=== PATIENT | female | born 1965 | race American Indian/Alaskan Native ===

== ENCOUNTER 2017-06-26 14:52 | Emergency (ER) | payer MEDICARE, MEDICAID ==
[2017-06-26 14:53] VITALS: BMI 35.4
[2017-06-26] MEDS ORDERED: Sodium Chloride 0.9% 500 ML IV ONE (15:51)
--- NOTE | 2017-06-26 15:56 | C.PDOC ---
History Of Present Illness 52 yr old female with history of urinary frequency and has a indwelling [place] Cather, presents to the ER stating she was treated for a UTI 2 weeks ago with outpatient antibiotics, however still does not feel better and still has dysuria and suprapubic pain. Patient denies fever, chills, nausea, vomiting, diarrhea, hematuria, back pain, weakness or numbness. Time Seen by Provider: 06/26/17 15:29 Chief Complaint (Nursing): Abdominal Pain History Per: Patient History/Exam Limitations: no limitations Onset/Duration Of Symptoms: Days Current Symptoms Are (Timing): Still Present Location Of Pain/Discomfort: Suprapubic Past Medical History Reviewed: Historical Data, Nursing Documentation, Vital Signs Vital Signs: Last Vital Signs Temp 97.8 F 06/26/17 18:47 Pulse 73 06/26/17 18:47 Resp 18 06/26/17 18:47 BP 152/86 H 06/26/17 18:47 Pulse Ox 97 06/26/17 18:53 - Medical History PMH: Anemia, Arthritis, Back Problems, Cardia Arrhythmia (tachycardia due to reaction of haldol with prednisone), Depression, Hiatal Hernia, Multiple Sclerosis Surgical History: Endoscopy - [facility] Procedures D & C NEC (10/27/13) ENDOSC POLYPECTOMY OF LG INTEST (10/03/00) PACKED CELL TRANSFUSION (08/09/13) PSYCHIAT DRUG THERAP NEC (11/03/02) Family History: States: No Known Family Hx - Social History Hx Tobacco Use: No Hx Alcohol Use: No Hx Substance Use: No - Immunization History Hx Tetanus Toxoid Vaccination: No Hx Influenza Vaccination: No Hx Pneumococcal Vaccination: No Review Of Systems Except As Marked, All Systems Reviewed And Found Negative. Constitutional: Negative for: Fever, Chills Gastrointestinal: Positive for: Abdominal Pain (suprapubic). Negative for: Nausea, Vomiting, Diarrhea Genitourinary: Positive for: Dysuria. Negative for: Hematuria Musculoskeletal: Negative for: Back Pain Neurological: Negative for: Weakness, Numbness Physical Exam - Physical Exam Appears: Non-toxic, No Acute Distress Skin: Warm, Dry, No Rash Head: Atraumatic, Normacephalic Eye(s): bilateral: Normal Inspection, PERRL, EOMI Oral Mucosa: Moist Neck: Normal ROM, Supple Chest: Symmetrical, No Tenderness Cardiovascular: Rhythm Regular, No Friction Rub, No Murmur Respiratory: Normal Breath Sounds, No Rales, No Rhonchi, No Stridor, No Wheezing Gastrointestinal/Abdominal: Bowel Sounds (active), Soft, Tenderness (suprapubic) , No Guarding, No Rebound Back: Normal Inspection, No CVA Tenderness Pelvic: Normal External Exam, Other (cartagena in place) Extremity: Normal ROM, No Tenderness, No Swelling Neurological/Psych: Oriented x3, Normal Speech Gait: Unable To Assess (PAtient is a paraplegic) ED Course And Treatment - Laboratory Results Result Diagrams: 06/26/17 16:26 06/26/17 16:26 O2 Sat by Pulse Oximetry: 97 (RA) Pulse Ox Interpretation: Normal Medical Decision Making Medical Decision Making: PLAN: * Labs * Urinalysis * Morphine IVP * Toradol IVP * Zofran IVP * Sodium Chloride IV [place] bag was changed, but patient does not want catheter changed. Patient states she will have it changed by her visiting nurse in 2-3 days. UA sent which is (+) for UTI. Patient reports that she is taking Monobact. PAtient given Macrobid and vantin as that antibiotic may be ineffective. On re-exam, the patient reports improvement of symptoms. Lungs are CTA, heart is RRR, abdomen is soft, non-tender and tolerating PO well. Disposition - Disposition Referrals: Andres Patel MD [Staff Provider] - Disposition Time: 18:52 Condition: GOOD Additional Instructions: Follow up with the medical doctor within 1-2 days. Return if worsened. Prescriptions: Cefpodoxime [Vantin] 200 mg PO BID #14 tab Nitrofurantoin Macrocrystals [Macrobid] 100 mg PO BID #14 cap Instructions: Urinary Tract Infections in Adults Forms: [employer] (Turkish) - Clinical Impression Clinical Impression: UTI (urinary tract infection) - PA / BUSINESS SERVICES OFFICER / Resident Statement MD/DO has reviewed & agrees with the documentation as recorded. - Scribe Statement The provider has reviewed the documentation as recorded by the Scribe Nyaely Esteban All medical record entries made by the Scribe were at my direction and personally dictated by me. I have reviewed the chart and agree that the record accurately reflects my personal performance of the history, physical exam, medical decision making, and the department course for this patient. I have also personally directed, reviewed, and agree with the discharge instructions and disposition.
[2017-06-26] MEDS ORDERED: Morphine 4 MG/ML VIAL ONE (16:02)
[2017-06-26] MEDS ORDERED: Sodium Chloride 0.9% 1,000 ML ONE (16:02)
[2017-06-26 16:36] LABS: BASO # 0.1 K/uL (0.0-0.2); BASO % 0.6 % (0.0-2.0); EOS # 0.1 K/uL (0.0-0.7); EOS % 1.5 % (0.0-4.0); HEMOGLOBIN 11.6 g/dL (11.0-16.0); LYMPH # 2.7 K/uL (1.0-4.3); LYMPH % 33.2 % (20.0-40.0); MEAN CELL VOLUME 86.8 fL (81.0-99.0); MEAN CORPUSCULAR HEMOGLOBIN 29.4 pg (27.0-31.0); MEAN CORPUSCULAR HGB CONC 33.9 g/dL (33.0-37.0); MEAN PLATELET VOLUME 7.3 fL (7.2-11.7); MONO # 0.8 K/uL (0.0-0.8); MONO % 9.5 % (0.0-10.0); NEUT # 4.5 K/uL (1.8-7.0); NEUT % 55.2 % (50.0-75.0); NRBC % 0.1 % (0.0-2.0); RBC 3.96 Mil/uL (3.80-5.20); WHITE BLOOD COUNT 8.1 K/uL (4.8-10.8)
[2017-06-26 16:42] LABS: ALB/GLOB RATIO 0.9 (1.0-2.1); ALBUMIN 3.9 g/dL (3.5-5.0); ALT/SGPT 31 U/L (9-52); AST/SGOT 36 U/L (14-36); BLOOD UREA NITROGEN 9 mg/dL (7-17); CALCIUM 8.9 mg/dl (8.6-10.4); GFR AFRICAN-AMERICAN > 60; GFR NON-AFRICAN AMERICAN > 60; LIPASE 197 U/L (23-300)
[2017-06-26 17:14] LABS: SQUAMOUS EPITHIAL < 1 /hpf (0-5); URINE BACTERIA FEW (<OCC); URINE BILIRUBIN NEGATIVE (NEGATIVE); URINE BLOOD 1+ (NEGATIVE); URINE CLARITY Hazy (Clear); URINE COLOR Straw (YELLOW); URINE GLUCOSE (UA) NORMAL (Normal); URINE LEUKOCYTE ESTERASE 3+ Leu/uL (Negative); URINE NITRATE POSITIVE (NEGATIVE); URINE PROTEIN NEGATIVE (NEGATIVE); URINE UROBILINOGEN NORMAL mg/dL (0.2-1.0)
[2017-06-26] MEDS ORDERED: cefTRIAXone IV 1 gm in Dextros 50 ML IV ONE (18:02)
[2017-06-26] MEDS ORDERED: cefTRIAXone IV 1 gm in Dextros 50 ML IVPB ONE (18:35)
[2017-06-26 22:28] VITALS: BP 132/79; PULSE 73; RESP 22; TEMP 97.5; O2SAT 100
== END 2017-06-26 22:15 | disposition home or self-care (01) ==
LOC: C.ER 14:52
DX: N39.0 Urinary tract infection, site not specified (principal)
CPT/HCPCS: 80053; 81001; 83690; 85025; 87086; 87181; 96365; 96375; 99285; J0696; J1885; J2270; J2405; J7040

== ENCOUNTER 2017-07-31 12:02 | Emergency (ER) | payer MEDICARE, MEDICAID ==
[2017-07-31 12:02] VITALS: BMI 35.4
[2017-07-31 12:18] VITALS: RESP 16; TEMP 97.9
[2017-07-31] MEDS ORDERED: Oxycodone/Acetaminophen 5/325 mg Tab PO STA (12:55)
[2017-07-31] MEDS ORDERED: Oxycodone/Acetaminophen 5/325 mg Tab ONE ×2 (13:01→13:30)
--- NOTE | 2017-07-31 13:05 | C.PDOC ---
History Of Present Illness 52yo female, with history of multiple sclerosis, hemiplegia, brought to ER by EMS accompanied by her caregiver for evaluation of "possible UTI" for past 3 days. Patient has a chronic [place] ( for 5 yrs) catheter and reports noticing foul odor to her urine and cloudy urine in urine bag. She also reports vaginal irritation " soreness" and some vaginal discharge. Patient admits, similar sx in "month ago was here with same". Otherwise, patient denies any associated fever, chills, recent illness, CP, SOB, dyspnea, palpitation, abd. pain, nausea , vomiting, back pain, gross hematuria. She has no other medical complaints. At present time, pt appears comfortable, not in any apparent distress. Time Seen by Provider: 07/31/17 12:14 Chief Complaint (Nursing): Female Genitourinary History Per: Patient History/Exam Limitations: no limitations Onset/Duration Of Symptoms: Days (3) Current Symptoms Are (Timing): Still Present Associated Symptoms: Urinary Symptoms. denies: Fever, Chills, Nausea, Vomiting Abnormal Vaginal Bleeding: No Past Medical History Reviewed: Historical Data, Nursing Documentation, Vital Signs Vital Signs: Last Vital Signs Temp 97.9 F 07/31/17 12:14 Pulse 78 07/31/17 12:14 Resp 16 07/31/17 12:14 BP 143/63 07/31/17 12:14 Pulse Ox 97 07/31/17 14:36 - Medical History PMH: Anemia, Arthritis, Back Problems, Cardia Arrhythmia (tachycardia due to reaction of haldol with prednisone), Depression, Hiatal Hernia, Multiple Sclerosis Other PMH: Obesity Surgical History: Endoscopy - [facility] Procedures D & C NEC (10/27/13) ENDOSC POLYPECTOMY OF LG INTEST (10/03/00) PACKED CELL TRANSFUSION (08/09/13) PSYCHIAT DRUG THERAP NEC (11/03/02) Family History: States: Unknown Family Hx - Social History Hx Tobacco Use: No Hx Alcohol Use: No Hx Substance Use: No - Immunization History Hx Tetanus Toxoid Vaccination: No Hx Influenza Vaccination: No Hx Pneumococcal Vaccination: No Review Of Systems Except As Marked, All Systems Reviewed And Found Negative. Constitutional: Negative for: Fever, Chills Gastrointestinal: Negative for: Nausea, Vomiting, Abdominal Pain Genitourinary: Positive for: Dysuria, Vaginal Discharge. Negative for: Hematuria, Vaginal Bleeding Physical Exam - Physical Exam Appears: Non-toxic, No Acute Distress Skin: Warm, Dry, Other (small abrasion noted Right inner thigh; area of dry skin with excoriation to Right gluteus, no open wounds. Smal area of erythema over Right waist side, no open wound. No discharges, no cellulitis.) Eye(s): bilateral: PERRL Neck: Trachea Midline, Supple Chest: Symmetrical Cardiovascular: Rhythm Regular, No Murmur Respiratory: No Decreased Breath Sounds, No Accessory Muscle Use, No Stridor, No Wheezing Gastrointestinal/Abdominal: Soft, No Tenderness, No Distention, No Guarding, No Rebound Back: No CVA Tenderness Pelvic: Other ([place] cath , mild vaginal irritation, no discahrges. Urine bag with cloudy residual urine, no blood.) Neurological/Psych: Oriented x3, Normal Speech ED Course And Treatment O2 Sat by Pulse Oximetry: 97 (RA) Pulse Ox Interpretation: Normal Progress Note: Urine culture and urinalysis ordered. Patient given Diflucan and 1 tab of Percocet in ER. As per RN, percoect was changed to Tramadol. On re- evaluation, pt remained stable, afebrile, hemodynamicaly stable. Non-toxic. Abd: benign, (-) guarding, (-) rebound. back: (-) CVA tenderness. Previous ED visits review, last one was on 06/26/17 when pt ws seen due to same complaints. Blood work review and appeared normal. UA (+) nitrates, WBC, RBC. Today's UA results review and compare to previous visit 06/26/17, appears slightly high #WBC , RBC, (+) NItrates. UCx from 06/26/17 review (+) Klebsiella Pneumonia with sensitivity to Cipro, Bactrim ( pt is allergic to sulfa). Results review and discussed in full with patient and home care scheduler. Sister was on phone, results discussed as well. Pt advised to F/u with PMD, Urology in 1-2 days for re- evaluation and further tx, possible [place] cath removal or change to different Urine cath. Pt understand and agrees with plan. Stable for discharge now. Disposition - Disposition Disposition: HOME/ ROUTINE Disposition Time: 14:12 Condition: STABLE Additional Instructions: Take medication as prescribed You can call back to Emergency Department at [phone] to request results of Urine Culture in 3-4 days Follow with PMD, urology in 1-2 days for re-evaluation. return to ED if any worsening or new changes. Prescriptions: Bacitracin OINT 1 applic TP BID #1 tube Ciprofloxacin [Cipro] 1 tab PO BID #14 tab Clotrimazole 1% Vaginal [Clotrimazole] 1 inch VG BID #1 tube Fluconazole [Diflucan] 100 mg PO DAILY #3 tab Vitamin A/D [Vitamin A&D] 1 applic TP DAILY #1 tube Instructions: Urinary Tract Infections in Adults, How to Prevent Catheter Associated Urinary Tract Infections Forms: [employer] (Khmer) - Clinical Impression Clinical Impression: UTI (urinary tract infection), [place] catheter in place - PA / PHOTOGRAPH TINTER / Resident Statement MD/DO has reviewed & agrees with the documentation as recorded. - Scribe Statement The provider has reviewed the documentation as recorded by the Scribe (Dori Ponce) Provider Attestation: All medical record entries made by the Scribe were at my direction and personally dictated by me. I have reviewed the chart and agree that the record accurately reflects my personal performance of the history, physical exam, medical decision making, and the department course for this patient. I have also personally directed, reviewed, and agree with the discharge instructions and disposition.
[2017-07-31 13:37] LABS: URINE BACTERIA MOD (<OCC); WBC CLUMPS FEW /hpf
[2017-07-31 13:39] LABS: URINE BILIRUBIN NEGATIVE (NEGATIVE); URINE BLOOD 1+ (NEGATIVE); URINE CLARITY Hazy (Clear); URINE COLOR Yellow (YELLOW); URINE GLUCOSE (UA) NORMAL (Normal); URINE LEUKOCYTE ESTERASE 3+ Leu/uL (Negative); URINE PROTEIN 1+ mg/dL (NEGATIVE); URINE UROBILINOGEN NORMAL mg/dL (0.2-1.0)
[2017-07-31 17:18] VITALS: BP 156/84; PULSE 84; O2SAT 98
--- NOTE | 2017-08-01 22:33 | CARD ---
APPROVED REPORT EKG Measurement Heart [id number] <Conclusion> Normal sinus rhythm Possible Left atrial enlargement RBBB Abnormal ECG
== END 2017-07-31 17:18 | disposition home or self-care (01) ==
LOC: C.ER 12:02
DX: N39.0 Urinary tract infection, site not specified (principal); Z97.8 Presence of other specified devices